=== PATIENT | female | born 1975 | race Caucasian/White ===

== ENCOUNTER 2018-10-19 15:45 | Inpatient (IN) | payer OTHER ==
[2018-10-19 16:31] VITALS: BMI 30.9
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
[2018-10-19] MEDS ORDERED: chlordiazePOXIDE HCL 25 MG CAPSULE PO ONE (19:35)
[2018-10-19] MEDS ORDERED: hydrOXYzine PAMOATE 25 MG CAPSULE (FP) PO PRN (19:35)
[2018-10-19] MEDS ORDERED: IBUPROFEN 600 MG TABLET (FP) PO PRN (19:35)
[2018-10-19] MEDS ORDERED: MAG HYDROX/AL HYDROX/SIMETH 30 ML UNIT-DOSE CUP PO PRN (19:35)
[2018-10-19] MEDS ORDERED: ACETAMINOPHEN 325 MG TABLET (FP) PO PRN ×2 (19:35)
[2018-10-19] MEDS ORDERED: chlordiazePOXIDE HCL 25 MG CAPSULE PO PRN (19:35)
[2018-10-19] MEDS ORDERED: MAGNESIUM HYDROX 2400MG/30ML ORAL SUSPENSION 30 ML CUP PO PRN (19:35)
[2018-10-19] MEDS ORDERED: METHOCARBAMOL 500 MG TABLET PO PRN (19:35)
[2018-10-19] MEDS ORDERED: MENTHOL/PHENOL 1 EACH UD MM PRN (19:35)
[2018-10-19] MEDS ORDERED: BISMUTH SUBSALICYLATE 524 MG/30 ML UD PO PRN (19:35)
[2018-10-19] MEDS ORDERED: MAGNESIUM CITRATE 300 ML BOTTLE PO PRN (19:35)
[2018-10-19] MEDS: MELATONIN 5 MG TABLETS PO PRN (22:21)
[2018-10-19] MEDS: chlordiazePOXIDE HCL 25 MG CAPSULE PO SCH (22:21)
[2018-10-19] MEDS: THIAMINE HCL 100 MG TABLET (FP) PO SCH (22:22)
[2018-10-19] MEDS: levETIRAcetam 500 MG TABLET (FP) PO SCH (23:05)
[2018-10-19] MEDS: BACITRACIN 0.9 GM PACKET TP SCH (23:05)
[2018-10-19] MEDS: GABAPENTIN 300 MG CAPSULE (FP) PO SCH (23:05)
[2018-10-20] MEDS: GABAPENTIN 300 MG CAPSULE (FP) PO SCH ×3 (05:35→22:08)
[2018-10-20] MEDS: chlordiazePOXIDE HCL 25 MG CAPSULE PO SCH ×3 (05:36→17:40)
[2018-10-20] MEDS ORDERED: PSEUDOEPHEDRINE PO SCH (10:00)
[2018-10-20] MEDS ORDERED: [UNRECOGNIZED DRUG - OTHER] PO SCH (10:00)
[2018-10-20] MEDS ORDERED: CETIRIZINE HCL PO SCH (10:00)
[2018-10-20] MEDS: BACITRACIN 0.9 GM PACKET TP SCH ×2 (10:05→22:08)
[2018-10-20] MEDS: levETIRAcetam 500 MG TABLET (FP) PO SCH ×2 (10:06→22:07)
--- NOTE | 2018-10-20 10:06 | EKG ---
Test Reason : Blood Pressure : / mmHG Vent. Rate : 063 BPM Atrial Rate : 063 BPM P-R Int : 138 ms QRS Dur : 082 ms QT Int : 406 ms P-R-T Axes : 038 062 036 degrees QTc Int : 415 ms NORMAL SINUS RHYTHM NORMAL ECG NO PREVIOUS ECGS AVAILABLE Confirmed by EVA MARTIN, MOISÉS ([id number]) on 10/20/2018 10:05:51 AM Referred By: NELSON MENEZES Confirmed By:MOISÉS VELASQUEZ MD
[2018-10-20] MEDS: NICOTINE 21 MG/24 HOURS TOPICAL PATCH TD SCH (10:07)
[2018-10-20] MEDS: NICOTINE POLACRILEX 2 MG GUM BUC PRN ×2 (10:07→22:12)
[2018-10-20] MEDS: ALBUTEROL SO4 8 GM HFA INHALER IH SCH (10:08)
[2018-10-20 10:25] LABS: HEMATOCRIT 37.1 % (32.4-45.2); HEMOGLOBIN 12.4 GM/dL (10.7-15.3); MCHC 33.5 g/dl (32.0-36.0); MEAN CELL VOLUME 101.6 fl (80-96); MEAN PLT VOLUME 9.8 fl (7.5-11.1); PLATELET COUNT 76 K/MM3 (134-434); RBC 3.65 M/mm3 (3.60-5.2); WHITE BLOOD COUNT 5.2 K/mm3 (4.0-10.0)
[2018-10-20 10:37] LABS: ALK PHOS 83 U/L (45-117); ANION GAP 5 MMOL/L (8-16); BILIRUBIN,TOTAL 0.5 mg/dL (0.2-1); BLOOD UREA NITROGEN 12 mg/dL (7-18); CALCIUM 8.8 mg/dL (8.5-10.1); CHLORIDE 105 mmol/L (98-107); CO2 30 mmol/L (21-32); CREATININE 0.8 mg/dL (0.55-1.3); GLUCOSE,RANDOM 172 mg/dL (74-106); POTASSIUM 3.6 mmol/L (3.5-5.1); SGOT/AST 78 U/L (15-37); SGPT/ALT 75 U/L (13-61); SODIUM 139 mmol/L (136-145); TOT PROT 5.8 g/dl (6.4-8.2)
[2018-10-20] MEDS: PATIENT'S OWN MEDICATION (NON-FORMULARY) (Topiramate [Topamax] 50 MG) PO SCH (11:45)
[2018-10-20] MEDS ORDERED: P-EPHED 60MG/TRIPROLIDI 2.5MG TABLET PO PRN (13:33)
--- NOTE | 2018-10-20 13:35 | PN ---
S CIWA - CIWA Score Nausea/Vomitin-No Nausea/No Vomiting Muscle Tremors: 3 Anxiety: 3 Agitation: 3 Paroxysmal Sweats: 3 Orientation: 0-Oriented Tacttile Disturbances: 0-None Auditory Disturbances: 0-None Visual Disturbances: 0-None Headache: 0-None Present CIWA-Ar Total Score: 12 S Progress Note (SOAP) Subjective: agitation sweats shakes interrupted sleep i need my own zertec ordered from my medication i brought in. Objective: 10/20/18 13:34 Vital Signs Temperature 98.1 F 10/20/18 09:31 Pulse Rate 72 10/20/18 09:31 Respiratory Rate 16 10/20/18 09:31 Blood Pressure 117/65 10/20/18 09:31 O2 Sat by Pulse Oximetry (%) Laboratory Tests 10/19/18 10/20/18 10/20/18 22:09 07:00 07:00 WBC 5.2 RBC 3.65 Hgb 12.4 Hct 37.1 MCV 101.6 H MCH 34.0 H MCHC 33.5 RDW 14.0 Plt Count 76 L MPV 9.8 Sodium 139 Potassium 3.6 Chloride 105 Carbon Dioxide 30 Anion Gap 5 L BUN 12 Creatinine 0.8 Creat Clearance w eGFR 77.57 Random Glucose 172 H Calcium 8.8 Total Bilirubin 0.5 AST 78 H ALT 75 H Alkaline Phosphatase 83 Total Protein 5.8 L Albumin 3.0 L POC Urine HCG, Qual Negative RPR Titer 10/20/18 07:00 WBC RBC Hgb Hct MCV MCH MCHC RDW Plt Count MPV Sodium Potassium Chloride Carbon Dioxide Anion Gap BUN Creatinine Creat Clearance w eGFR Random Glucose Calcium Total Bilirubin AST ALT Alkaline Phosphatase Total Protein Albumin POC Urine HCG, Qual RPR Titer Nonreactive aaox3 ambulating no acute distress Assessment: 10/20/18 13:34 withdrawal sx zertec medication was verified and seen bottle she brought in to have it ordered. Plan: continue detox increase fluids zertec 10mg ordered
[2018-10-20] MEDS ORDERED: IBUPROFEN 600 MG TABLET (FP) PO PRN (14:12)
[2018-10-20] MEDS ORDERED: CETIRIZINE 10 MG PO ONE (14:30)
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
[2018-10-20] MEDS: THIAMINE HCL 100 MG TABLET (FP) PO SCH (22:08)
[2018-10-20] MEDS: AMITRIPTYLINE HCL 10 MG TABLET (FP) PO SCH (22:09)
[2018-10-20] MEDS: MELATONIN 5 MG TABLETS PO PRN (22:10)
[2018-10-21] MEDS: GABAPENTIN 300 MG CAPSULE (FP) PO SCH ×3 (06:31→22:10)
[2018-10-21] MEDS: chlordiazePOXIDE HCL 25 MG CAPSULE PO SCH ×4 (06:33→18:07)
[2018-10-21] MEDS: IBUPROFEN 400 MG TABLET (FP) PO PRN ×2 (06:35→23:20)
[2018-10-21] MEDS: levETIRAcetam 500 MG TABLET (FP) PO SCH ×2 (10:06→22:10)
[2018-10-21] MEDS: PATIENT'S OWN MEDICATION (NON-FORMULARY) (Topiramate [Topamax] 50 MG) PO SCH (10:07)
[2018-10-21] MEDS: BACITRACIN 0.9 GM PACKET TP SCH ×2 (10:07→22:12)
[2018-10-21] MEDS: CETIRIZINE 10 MG PO SCH (10:07)
[2018-10-21] MEDS: ALBUTEROL SO4 8 GM HFA INHALER IH SCH (10:09)
[2018-10-21] MEDS: NICOTINE 21 MG/24 HOURS TOPICAL PATCH TD SCH (10:09)
[2018-10-21] MEDS: NICOTINE POLACRILEX 2 MG GUM BUC PRN (10:10)
--- NOTE | 2018-10-21 11:24 | PN ---
[facility] CIWA - CIWA Score Nausea/Vomitin-No Nausea/No Vomiting Muscle Tremors: 3 Anxiety: 3 Agitation: 3 Paroxysmal Sweats: 2 Orientation: 0-Oriented Tacttile Disturbances: 0-None Auditory Disturbances: 0-None Visual Disturbances: 0-None Headache: 0-None Present CIWA-Ar Total Score: 11 S Progress Note (SOAP) Subjective: sweats chills agitation interrupted sleep Objective: 10/21/18 11:23 Vital Signs Temperature 97.5 F L 10/21/18 09:10 Pulse Rate 81 10/21/18 09:10 Respiratory Rate 18 10/21/18 09:10 Blood Pressure 125/92 10/21/18 09:10 O2 Sat by Pulse Oximetry (%) Laboratory Tests 10/19/18 10/20/18 10/20/18 22:09 07:00 07:00 WBC 5.2 RBC 3.65 Hgb 12.4 Hct 37.1 MCV 101.6 H MCH 34.0 H MCHC 33.5 RDW 14.0 Plt Count 76 L MPV 9.8 Sodium 139 Potassium 3.6 Chloride 105 Carbon Dioxide 30 Anion Gap 5 L BUN 12 Creatinine 0.8 Creat Clearance w eGFR 77.57 Random Glucose 172 H Calcium 8.8 Total Bilirubin 0.5 AST 78 H ALT 75 H Alkaline Phosphatase 83 Total Protein 5.8 L Albumin 3.0 L POC Urine HCG, Qual Negative RPR Titer 10/20/18 07:00 WBC RBC Hgb Hct MCV MCH MCHC RDW Plt Count MPV Sodium Potassium Chloride Carbon Dioxide Anion Gap BUN Creatinine Creat Clearance w eGFR Random Glucose Calcium Total Bilirubin AST ALT Alkaline Phosphatase Total Protein Albumin POC Urine HCG, Qual RPR Titer Nonreactive aaox3 ambulating no acute distress Assessment: 10/21/18 11:24 withdrawal sx Plan: continue detox increase fluids
[2018-10-21] MEDS: AMITRIPTYLINE HCL 10 MG TABLET (FP) PO SCH (22:09)
[2018-10-21] MEDS: THIAMINE HCL 100 MG TABLET (FP) PO SCH (22:18)
[2018-10-21] MEDS ORDERED: chlordiazePOXIDE HCL 10 MG CAPSULE PO PRN (23:00)
[2018-10-21] MEDS: chlordiazePOXIDE HCL 10 MG CAPSULE PO SCH (23:51)
[2018-10-22] MEDS: GABAPENTIN 300 MG CAPSULE (FP) PO SCH ×3 (06:15→22:12)
[2018-10-22] MEDS: chlordiazePOXIDE HCL 10 MG CAPSULE PO SCH ×4 (06:15→22:11)
[2018-10-22] MEDS: NICOTINE 21 MG/24 HOURS TOPICAL PATCH TD SCH (10:18)
[2018-10-22] MEDS: BACITRACIN 0.9 GM PACKET TP SCH ×2 (10:18→22:11)
[2018-10-22] MEDS: levETIRAcetam 500 MG TABLET (FP) PO SCH ×2 (10:18→22:12)
[2018-10-22] MEDS: ALBUTEROL SO4 8 GM HFA INHALER IH SCH (10:19)
[2018-10-22] MEDS: PATIENT'S OWN MEDICATION (NON-FORMULARY) (Topiramate [Topamax] 50 MG) PO SCH (10:19)
--- NOTE | 2018-10-22 10:26 | PN ---
S CIWA - CIWA Score Nausea/Vomitin-No Nausea/No Vomiting Muscle Tremors: 1-None Visible, but [place] Anxiety: 1-Mildly Anxious Agitation: 2 Paroxysmal Sweats: 1-Minimal Palms Moist Orientation: 0-Oriented Tacttile Disturbances: 0-None Auditory Disturbances: 0-None Visual Disturbances: 0-None Headache: 0-None Present CIWA-Ar Total Score: 5 [facility] Progress Note (SOAP) Subjective: feeling much better little anxiety Objective: 10/22/18 10:25 Vital Signs Temperature 97.3 F L 10/22/18 10:02 Pulse Rate 98 H 10/22/18 10:02 Respiratory Rate 20 10/22/18 10:02 Blood Pressure 123/88 10/22/18 10:02 O2 Sat by Pulse Oximetry (%) aaox3 ambulating no acute distress Assessment: 10/22/18 10:26 mild withdrawal sx Plan: continue detox increase fluids d/c in am
[2018-10-22] MEDS: CETIRIZINE 10 MG PO SCH (12:00)
[2018-10-22] MEDS: NICOTINE POLACRILEX 2 MG GUM BUC PRN ×2 (17:32→22:14)
[2018-10-22] MEDS: IBUPROFEN 400 MG TABLET (FP) PO PRN (19:59)
[2018-10-22] MEDS: AMITRIPTYLINE HCL 10 MG TABLET (FP) PO SCH (22:12)
[2018-10-22] MEDS: THIAMINE HCL 100 MG TABLET (FP) PO SCH (22:12)
[2018-10-23] MEDS: GABAPENTIN 300 MG CAPSULE (FP) PO SCH (06:41)
[2018-10-23] MEDS: NICOTINE POLACRILEX 2 MG GUM BUC PRN (06:42)
--- NOTE | 2018-10-23 08:51 | DS ---
[facility] Detox Discharge Summary Admission Date: 10/19/18 Discharge Date: 10/23/18 - History Present History: Alcohol Dependence - Physical Exam Results Vital Signs: Vital Signs Temperature 97.9 F 10/22/18 21:58 Pulse Rate 72 10/22/18 21:58 Respiratory Rate 18 10/23/18 03:30 Blood Pressure 116/82 10/22/18 21:58 O2 Sat by Pulse Oximetry (%) - Treatment Hospital Course: Detox Protocol Followed, Detoxed Safely, Responded well, Discharged Condition Good, Rehab Referral Accepted - Medication Discharge Medications: Ambulatory Orders Albuterol Sulfate Inhaler - [Ventolin Hfa Inhaler -] 1 puff IH DAILY 10/19/18 Cetirizine HCl/Pseudoephedrine [Zyrtec-D Tablet] 1 each PO DAILY 10/19/18 Fluticasone Propionate [Flonase Allergy Relief] 9.9 ml NS DAILY 10/19/18 Gabapentin 600 mg PO TID 10/19/18 Naproxen [Naprosyn -] 500 mg PO BID 10/19/18 Topiramate [Topamax] 50 mg PO DAILY 10/19/18 levETIRAcetam [Keppra -] 500 mg PO BID 10/19/18 Amitriptyline HCl [Elavil -] 10 mg PO HS 10/20/18 - Diagnosis (1) Alcohol dependence with withdrawal Current Visit: Yes Status: Chronic Qualifiers: Complication of substance-induced condition: uncomplicated Qualified Code(s ): F10.230 - Alcohol dependence with withdrawal, uncomplicated (2) Alcohol-induced mood disorder Current Visit: Yes Status: Acute (3) Insomnia Current Visit: Yes Status: Acute (4) Alcohol dependence with uncomplicated intoxication Current Visit: Yes Status: Chronic (5) Asthma Current Visit: Yes Status: Chronic Qualifiers: Asthma severity: mild Asthma persistence: unspecified Asthma complication type: unspecified Qualified Code(s): J45.909 - Unspecified asthma , uncomplicated (6) Neuropathy Current Visit: Yes Status: Chronic (7) Nicotine dependence Current Visit: Yes Status: Chronic Qualifiers: Nicotine product type: cigarettes Substance use status: uncomplicated Qualified Code(s): F17.210 - Nicotine dependence, cigarettes, uncomplicated (8) Seizures Current Visit: Yes Status: Chronic - AMA Did Patient Leave Against Medical Advice: No (ref[facility])
[2018-10-23] MEDS ORDERED: LOPERAMIDE HCL 2 MG CAPSULE PO ONE (09:12)
[2018-10-23 09:24] VITALS: BP 102/69; PULSE 88; TEMP 97.7
[2018-10-23] MEDS: levETIRAcetam 500 MG TABLET (FP) PO SCH (10:19)
[2018-10-23] MEDS: chlordiazePOXIDE HCL 10 MG CAPSULE PO SCH (10:19)
[2018-10-23] MEDS: NICOTINE 21 MG/24 HOURS TOPICAL PATCH TD SCH (10:19)
[2018-10-23] MEDS: BACITRACIN 0.9 GM PACKET TP SCH (10:19)
[2018-10-23] MEDS: ALBUTEROL SO4 8 GM HFA INHALER IH SCH (10:19)
[2018-10-23] MEDS: CETIRIZINE 10 MG PO SCH (10:19)
[2018-10-23] MEDS: PATIENT'S OWN MEDICATION (NON-FORMULARY) (Topiramate [Topamax] 50 MG) PO SCH (10:19)
== END 2018-10-23 11:35 | disposition other institution (70) | DRG 775 ==
LOC: YASAS 15:45 → Y6N 19:28
PROVIDERS: ADMIT Surgery; ATTEND Surgery
PROC: HZ2ZZZZ Detoxification Services for Substance Abuse Treatment (ICD-10-PCS; principal; 2018-10-19)
DX: F10.230 Alcohol dependence with withdrawal, uncomplicated (principal); F10.229 Alcohol dependence with intoxication, unspecified; F17.210 Nicotine dependence, cigarettes, uncomplicated; F10.24 Alcohol dependence with alcohol-induced mood disorder; R56.1 Post traumatic seizures; J45.909 Unspecified asthma, uncomplicated; G62.9 Polyneuropathy, unspecified; G47.00 Insomnia, unspecified
CPT/HCPCS: 36415; 80053; 81025; 85027; 86593; 93005; 93010

== ENCOUNTER 2018-10-23 12:00 | Inpatient (IN) | payer OTHER ==
[2018-10-23] MEDS ORDERED: IBUPROFEN 400 MG TABLET (FP) PO PRN (13:42)
[2018-10-23] MEDS ORDERED: guaiFENesin 200 MG/10 ML 10 ML UNIT-DOSE CUPS PO PRN (13:42)
[2018-10-23] MEDS ORDERED: MENTHOL/PHENOL 1 EACH UD MM PRN (13:42)
[2018-10-23] MEDS ORDERED: MAGNESIUM CITRATE 300 ML BOTTLE PO PRN (13:42)
[2018-10-23] MEDS ORDERED: MAGNESIUM HYDROX 2400MG/30ML ORAL SUSPENSION 30 ML CUP PO PRN (13:42)
[2018-10-23] MEDS ORDERED: P-EPHED 60MG/TRIPROLIDI 2.5MG TABLET PO PRN (13:42)
--- NOTE | 2018-10-23 13:42 | HP ---
MARISOL MARTIN Rehab Assess/Revision - Admission History Admitted to Rehab from: Y [address] [place] [address] - Vital signs Vital Signs: Vital Signs Period Temp Pulse Resp BP Sys/Shi Pulse Ox Last 24 Hr 96.6 F 73 18 119/80 - Findings Detox History & Physical reviewed: Yes Concur with findings: Yes Inpatient Rehab Admission - Rehab Decision to Admit Inpatient rehab admission?: Yes - Initial Determination Are CD services needed?: Yes Free of communicable disease: Yes Not in need of hospitalization: Yes - Rehab Admission Criteria Previous failed treatment: Yes Poor recovery environment: Yes Comorbidities: Yes Lacks judgement: Yes Patient is meeting Inpatient Rehab admission criteria:: Yes
[2018-10-23] MEDS ORDERED: ALBUTEROL SO4 8 GM HFA INHALER IH PRN (13:43)
[2018-10-23] MEDS ORDERED: PT OWN MED DRAWER 7, Y5N ONE ×2 (15:19→19:55)
[2018-10-23] MEDS: GABAPENTIN 300 MG CAPSULE (FP) PO SCH ×2 (15:23→21:27)
[2018-10-23] MEDS: LOPERAMIDE HCL 2 MG CAPSULE PO PRN ×2 (15:23→21:26)
[2018-10-23] MEDS: MAG HYDROX/AL HYDROX/SIMETH 30 ML UNIT-DOSE CUP PO PRN (19:18)
[2018-10-23] MEDS: THIAMINE HCL 100 MG TABLET (FP) PO SCH (21:25)
[2018-10-23] MEDS: BACITRACIN 0.9 GM PACKET TP SCH (21:27)
[2018-10-23] MEDS: levETIRAcetam 500 MG TABLET (FP) PO SCH (21:27)
[2018-10-23] MEDS: NAPROXEN 500 MG TABLET (FP) PO SCH (21:27)
[2018-10-23] MEDS: AMITRIPTYLINE HCL 10 MG TABLET (FP) PO SCH (21:28)
[2018-10-23] MEDS: FLUTICASONE PROP 0.05% 16 GM NASAL SPRAY NS SCH (21:28)
[2018-10-23] MEDS ORDERED: MELATONIN 5 MG TABLETS PO PRN (22:00)
[2018-10-24] MEDS: BISMUTH SUBSALICYLATE 524 MG/30 ML UD PO PRN ×2 (02:14→06:43)
[2018-10-24] MEDS: GABAPENTIN 300 MG CAPSULE (FP) PO SCH ×3 (06:42→21:12)
[2018-10-24] MEDS: NAPROXEN 500 MG TABLET (FP) PO SCH ×2 (09:58→21:12)
[2018-10-24] MEDS: FLUTICASONE PROP 0.05% 16 GM NASAL SPRAY NS SCH ×2 (09:58→21:15)
[2018-10-24] MEDS: BACITRACIN 0.9 GM PACKET TP SCH ×2 (09:58→21:12)
[2018-10-24] MEDS: CETIRIZINE 10 MG PO SCH (09:58)
[2018-10-24] MEDS: levETIRAcetam 500 MG TABLET (FP) PO SCH ×2 (09:59→21:12)
[2018-10-24] MEDS: TOPIRAMATE 25 MG TABLET (FP) PO SCH (09:59)
[2018-10-24] MEDS: NICOTINE 21 MG/24 HOURS TOPICAL PATCH TD SCH (09:59)
[2018-10-24] MEDS ORDERED: PSEUDOEPHEDRINE PO SCH (10:00)
[2018-10-24] MEDS ORDERED: CETIRIZINE HCL PO SCH (10:00)
[2018-10-24] MEDS ORDERED: [UNRECOGNIZED DRUG - OTHER] PO SCH (10:00)
[2018-10-24] MEDS: MULTIVITAMINS (DAILY MVI) TABLET (FP) PO SCH (13:07)
[2018-10-24] MEDS: NICOTINE POLACRILEX 4 MG GUM BUC PRN ×2 (13:07→18:37)
[2018-10-24] MEDS ORDERED: WITCH HAZEL 50% (TUCKS) 40 PAD/JAR PAD TP PRN (13:44)
--- NOTE | 2018-10-24 13:50 | PN ---
[facility] Progress Note Note: PT C/O FREQUENT WATERY STOOL WITH RECTAL DISCOMFORT SINCE YESTERDAY. PT WAS ORDERED PEPTO-BISMOL EARLIER THIS MORNING. PT IS A NEW PT REFERRED TO [facility] ON 10/23/18 WHO COMPLETED DETOX FROM 10/19/18 TO 10/23/18 ON [address] [facility]. Vital Signs 10/24/18 06:52 Temperature 97.4 F L Pulse Rate 105 H Respiratory 18 Rate Blood Pressure 123/86 DIARRHEA PLAN;CONTINUE PEPTO D/W PT TO AVOID DAIRY FOODS AND ORANGE JUICE TILL SYMPTOMS KRYSTYNA. HYDRATION TOLERATED MAY TAKE WARM TEAS WITH NO MILK. TUCKS WIPES AFTER EACH BM
[2018-10-24] MEDS ORDERED: PT OWN MED DRAWER 7, Y5N ONE ×2 (14:41→21:41)
[2018-10-24] MEDS: THIAMINE HCL 100 MG TABLET (FP) PO SCH (21:15)
[2018-10-24] MEDS: AMITRIPTYLINE HCL 10 MG TABLET (FP) PO SCH (21:42)
[2018-10-25] MEDS: GABAPENTIN 300 MG CAPSULE (FP) PO SCH ×3 (06:41→21:11)
[2018-10-25] MEDS ORDERED: PT OWN MED DRAWER 7, Y5N ONE ×2 (07:18→21:12)
[2018-10-25] MEDS: BISMUTH SUBSALICYLATE 524 MG/30 ML UD PO PRN ×2 (07:40→13:03)
[2018-10-25] MEDS: BACITRACIN 0.9 GM PACKET TP SCH ×2 (10:08→21:10)
[2018-10-25] MEDS: NAPROXEN 500 MG TABLET (FP) PO SCH ×2 (10:08→21:11)
[2018-10-25] MEDS: levETIRAcetam 500 MG TABLET (FP) PO SCH ×2 (10:08→21:11)
[2018-10-25] MEDS: TOPIRAMATE 25 MG TABLET (FP) PO SCH (10:09)
[2018-10-25] MEDS: NICOTINE 21 MG/24 HOURS TOPICAL PATCH TD SCH (10:09)
[2018-10-25] MEDS: FLUTICASONE PROP 0.05% 16 GM NASAL SPRAY NS SCH ×2 (10:10→21:12)
[2018-10-25] MEDS: MULTIVITAMINS (DAILY MVI) TABLET (FP) PO SCH (10:11)
[2018-10-25] MEDS: CETIRIZINE 10 MG PO SCH (10:11)
[2018-10-25] MEDS: NICOTINE POLACRILEX 4 MG GUM BUC PRN ×3 (10:13→21:14)
[2018-10-25] MEDS: MAG HYDROX/AL HYDROX/SIMETH 30 ML UNIT-DOSE CUP PO PRN (10:13)
[2018-10-25] MEDS: ACETAMINOPHEN 325 MG TABLET (FP) PO PRN (17:58)
[2018-10-25] MEDS: THIAMINE HCL 100 MG TABLET (FP) PO SCH (21:11)
[2018-10-25] MEDS: AMITRIPTYLINE HCL 10 MG TABLET (FP) PO SCH (21:13)
[2018-10-26] MEDS: GABAPENTIN 300 MG CAPSULE (FP) PO SCH ×3 (07:07→21:09)
[2018-10-26] MEDS: BISMUTH SUBSALICYLATE 524 MG/30 ML UD PO PRN ×3 (07:07→19:15)
[2018-10-26] MEDS: BACITRACIN 0.9 GM PACKET TP SCH ×2 (09:53→21:09)
[2018-10-26] MEDS: CETIRIZINE 10 MG PO SCH (09:53)
[2018-10-26] MEDS: NICOTINE 21 MG/24 HOURS TOPICAL PATCH TD SCH (09:53)
[2018-10-26] MEDS: levETIRAcetam 500 MG TABLET (FP) PO SCH ×2 (09:54→21:10)
[2018-10-26] MEDS: MULTIVITAMINS (DAILY MVI) TABLET (FP) PO SCH (09:54)
[2018-10-26] MEDS: NAPROXEN 500 MG TABLET (FP) PO SCH ×2 (09:54→21:12)
[2018-10-26] MEDS: NICOTINE POLACRILEX 4 MG GUM BUC PRN (09:55)
[2018-10-26] MEDS: FLUTICASONE PROP 0.05% 16 GM NASAL SPRAY NS SCH ×2 (09:55→21:12)
[2018-10-26] MEDS: TOPIRAMATE 25 MG TABLET (FP) PO SCH (09:55)
[2018-10-26] MEDS: THIAMINE HCL 100 MG TABLET (FP) PO SCH (21:09)
[2018-10-26] MEDS ORDERED: PT OWN MED DRAWER 7, Y5N ONE ×2 (21:11→22:21)
[2018-10-26] MEDS: AMITRIPTYLINE HCL 10 MG TABLET (FP) PO SCH (21:12)
[2018-10-27] MEDS: GABAPENTIN 300 MG CAPSULE (FP) PO SCH ×3 (06:42→21:49)
[2018-10-27] MEDS: NICOTINE POLACRILEX 4 MG GUM BUC PRN ×3 (06:43→21:51)
[2018-10-27] MEDS: CETIRIZINE 10 MG PO SCH (09:45)
[2018-10-27] MEDS: BACITRACIN 0.9 GM PACKET TP SCH ×2 (09:45→21:49)
[2018-10-27] MEDS: FLUTICASONE PROP 0.05% 16 GM NASAL SPRAY NS SCH ×2 (09:46→21:50)
[2018-10-27] MEDS ORDERED: PT OWN MED DRAWER 7, Y5N ONE ×3 (09:47→22:58)
[2018-10-27] MEDS: NICOTINE 21 MG/24 HOURS TOPICAL PATCH TD SCH (09:48)
[2018-10-27] MEDS: NAPROXEN 500 MG TABLET (FP) PO SCH ×2 (09:48→21:49)
[2018-10-27] MEDS: levETIRAcetam 500 MG TABLET (FP) PO SCH ×2 (09:48→21:49)
[2018-10-27] MEDS: MULTIVITAMINS (DAILY MVI) TABLET (FP) PO SCH (09:49)
[2018-10-27] MEDS: TOPIRAMATE 25 MG TABLET (FP) PO SCH (09:49)
[2018-10-27] MEDS ORDERED: DIPHENOXYLATE 2.5/ATROPINE.025 1 COMBO TABLET PO ONE (09:55)
[2018-10-27] MEDS: DIPHENOXYLATE 2.5/ATROPINE.025 1 COMBO TABLET PO PRN (19:06)
[2018-10-27] MEDS: THIAMINE HCL 100 MG TABLET (FP) PO SCH (21:49)
[2018-10-27] MEDS: AMITRIPTYLINE HCL 10 MG TABLET (FP) PO SCH (21:49)
[2018-10-28] MEDS: GABAPENTIN 300 MG CAPSULE (FP) PO SCH ×3 (06:27→21:52)
[2018-10-28] MEDS: NICOTINE POLACRILEX 4 MG GUM BUC PRN ×3 (06:30→21:59)
[2018-10-28] MEDS: CETIRIZINE 10 MG PO SCH (09:48)
[2018-10-28] MEDS: BACITRACIN 0.9 GM PACKET TP SCH ×2 (09:48→21:54)
[2018-10-28] MEDS: levETIRAcetam 500 MG TABLET (FP) PO SCH ×2 (09:48→21:53)
[2018-10-28] MEDS: NAPROXEN 500 MG TABLET (FP) PO SCH ×2 (09:48→21:53)
[2018-10-28] MEDS: TOPIRAMATE 25 MG TABLET (FP) PO SCH (09:48)
[2018-10-28] MEDS: NICOTINE 21 MG/24 HOURS TOPICAL PATCH TD SCH (09:53)
[2018-10-28] MEDS: FLUTICASONE PROP 0.05% 16 GM NASAL SPRAY NS SCH ×2 (09:53→21:58)
[2018-10-28] MEDS: DIPHENOXYLATE 2.5/ATROPINE.025 1 COMBO TABLET PO PRN (10:17)
[2018-10-28] MEDS: MULTIVITAMINS (DAILY MVI) TABLET (FP) PO SCH (10:41)
[2018-10-28] MEDS ORDERED: LOPERAMIDE HCL 2 MG CAPSULE PO PRN (14:38)
[2018-10-28] MEDS: LOPERAMIDE HCL 2 MG CAPSULE PO SCH ×2 (14:50→21:52)
[2018-10-28] MEDS: ACETAMINOPHEN 325 MG TABLET (FP) PO PRN (16:23)
[2018-10-28] MEDS ORDERED: PT OWN MED DRAWER 7, Y5N ONE ×2 (21:56→21:58)
[2018-10-28] MEDS: AMITRIPTYLINE HCL 10 MG TABLET (FP) PO SCH (22:31)
[2018-10-28] MEDS: THIAMINE HCL 100 MG TABLET (FP) PO SCH (23:06)
[2018-10-29] MEDS: LOPERAMIDE HCL 2 MG CAPSULE PO SCH ×4 (02:45→22:14)
[2018-10-29] MEDS: NICOTINE POLACRILEX 4 MG GUM BUC PRN ×4 (06:39→21:25)
[2018-10-29] MEDS: GABAPENTIN 300 MG CAPSULE (FP) PO SCH ×3 (06:39→21:21)
[2018-10-29] MEDS: CETIRIZINE 10 MG PO SCH (10:02)
[2018-10-29] MEDS: MULTIVITAMINS (DAILY MVI) TABLET (FP) PO SCH (10:02)
[2018-10-29] MEDS: FLUTICASONE PROP 0.05% 16 GM NASAL SPRAY NS SCH ×2 (10:02→21:19)
[2018-10-29] MEDS: BACITRACIN 0.9 GM PACKET TP SCH ×2 (10:03→21:19)
[2018-10-29] MEDS: levETIRAcetam 500 MG TABLET (FP) PO SCH ×2 (10:03→21:20)
[2018-10-29] MEDS: NAPROXEN 500 MG TABLET (FP) PO SCH ×2 (10:03→21:20)
[2018-10-29] MEDS: TOPIRAMATE 25 MG TABLET (FP) PO SCH (10:03)
[2018-10-29] MEDS: NICOTINE 21 MG/24 HOURS TOPICAL PATCH TD SCH (10:03)
[2018-10-29] MEDS: THIAMINE HCL 100 MG TABLET (FP) PO SCH (21:22)
[2018-10-29] MEDS: AMITRIPTYLINE HCL 10 MG TABLET (FP) PO SCH (22:12)
[2018-10-30] MEDS: LOPERAMIDE HCL 2 MG CAPSULE PO SCH ×2 (02:58→08:47)
[2018-10-30] MEDS: NICOTINE POLACRILEX 4 MG GUM BUC PRN ×3 (06:18→18:11)
[2018-10-30] MEDS: GABAPENTIN 300 MG CAPSULE (FP) PO SCH ×3 (06:18→21:34)
[2018-10-30] MEDS: BACITRACIN 0.9 GM PACKET TP SCH ×2 (09:41→21:34)
[2018-10-30] MEDS: FLUTICASONE PROP 0.05% 16 GM NASAL SPRAY NS SCH ×2 (09:42→21:35)
[2018-10-30] MEDS: CETIRIZINE 10 MG PO SCH (09:42)
[2018-10-30] MEDS: NAPROXEN 500 MG TABLET (FP) PO SCH ×2 (09:42→21:34)
[2018-10-30] MEDS: levETIRAcetam 500 MG TABLET (FP) PO SCH ×2 (09:42→21:34)
[2018-10-30] MEDS: SULFAMETHOXAZOLE/TRIMETHOPRIM 800MG/160MG D.S. TABLET PO SCH (09:42)
[2018-10-30] MEDS: TOPIRAMATE 25 MG TABLET (FP) PO SCH (09:43)
[2018-10-30] MEDS: NICOTINE 21 MG/24 HOURS TOPICAL PATCH TD SCH (09:43)
[2018-10-30] MEDS: MULTIVITAMINS (DAILY MVI) TABLET (FP) PO SCH (09:45)
[2018-10-30] MEDS ORDERED: PT OWN MED DRAWER 7, Y5N ONE ×2 (09:45→21:36)
[2018-10-30] MEDS ORDERED: LOPERAMIDE HCL 2 MG CAPSULE PO PRN (10:11)
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
--- NOTE | 2018-10-30 16:03 | PN ---
[facility] Progress Note Note: Topamax order changed to reflect how the patient is taking the medication at home.
[2018-10-30] MEDS: THIAMINE HCL 100 MG TABLET (FP) PO SCH (21:34)
[2018-10-30] MEDS: AMITRIPTYLINE HCL 10 MG TABLET (FP) PO SCH (21:35)
[2018-10-31] MEDS: NICOTINE POLACRILEX 4 MG GUM BUC PRN ×3 (06:11→18:10)
[2018-10-31] MEDS: GABAPENTIN 300 MG CAPSULE (FP) PO SCH ×3 (06:11→21:56)
[2018-10-31] MEDS ORDERED: PT OWN MED DRAWER 7, Y5N ONE ×2 (08:54→19:57)
[2018-10-31] MEDS: FLUTICASONE PROP 0.05% 16 GM NASAL SPRAY NS SCH ×2 (09:38→21:57)
[2018-10-31] MEDS: TOPIRAMATE 25 MG TABLET (FP) PO SCH ×2 (09:38→22:00)
[2018-10-31] MEDS: SULFAMETHOXAZOLE/TRIMETHOPRIM 800MG/160MG D.S. TABLET PO SCH (09:39)
[2018-10-31] MEDS: NAPROXEN 500 MG TABLET (FP) PO SCH ×2 (09:39→21:57)
[2018-10-31] MEDS: levETIRAcetam 500 MG TABLET (FP) PO SCH ×2 (09:39→21:56)
[2018-10-31] MEDS: MULTIVITAMINS (DAILY MVI) TABLET (FP) PO SCH (09:39)
[2018-10-31] MEDS: BACITRACIN 0.9 GM PACKET TP SCH ×2 (09:41→21:56)
[2018-10-31] MEDS: CETIRIZINE 10 MG PO SCH (09:41)
[2018-10-31] MEDS: NICOTINE 21 MG/24 HOURS TOPICAL PATCH TD SCH (09:41)
[2018-10-31] MEDS: MINERAL OIL/PETROLAT/WATER TOPICAL CREAM 113 GM JAR TP PRN (09:48)
[2018-10-31] MEDS ORDERED: HYDROCHLOROTHIAZIDE 25 MG TABLET (FP) PO SCH (10:15)
--- NOTE | 2018-10-31 10:17 | PN ---
[facility] Progress Note Note: Patient presents with swelling of bilateral feet. States she swelling has gotten worse since yesterday. Patient denies recent injury to feet, has hx of ETOH dependence and borderline DM. Patient states she feels burning sensation to bottom of feet due to swelling. Laboratory Tests 10/25/18 10/26/18 10/27/18 06:40 07:06 06:41 POC Glucometer 108 139 171 Hemoglobin A1c % 10/28/18 08:00 POC Glucometer Hemoglobin A1c % 6.1 PE: alert and oriented x 3 skin warm and dry +perrla eoms intact bl\ LLE with 2+ swelling, RLE with +1 swelling, +pedal pulses bilaterally full rom, amb ad lois, no calf redness or swelling A/P: edema Continue treatment previously started with Bactrim leg elevation prn start hctz 25mg qd x 3 days repeat cmp on 11/03/18 monitor clinically
[2018-10-31] MEDS: HYDROCHLOROTHIAZIDE 12.5 MG CAPSULE (FP) PO SCH (18:10)
[2018-10-31] MEDS: ACETAMINOPHEN 325 MG TABLET (FP) PO PRN (19:09)
[2018-10-31] MEDS: AMITRIPTYLINE HCL 10 MG TABLET (FP) PO SCH (21:56)
[2018-10-31] MEDS: THIAMINE HCL 100 MG TABLET (FP) PO SCH (23:42)
[2018-11-01] MEDS: GABAPENTIN 300 MG CAPSULE (FP) PO SCH ×3 (06:17→21:07)
[2018-11-01] MEDS: NICOTINE POLACRILEX 4 MG GUM BUC PRN ×2 (06:18→09:43)
[2018-11-01] MEDS: BACITRACIN 0.9 GM PACKET TP SCH ×2 (09:40→21:10)
[2018-11-01] MEDS: HYDROCHLOROTHIAZIDE 12.5 MG CAPSULE (FP) PO SCH ×2 (09:41→18:35)
[2018-11-01] MEDS: CETIRIZINE 10 MG PO SCH (09:41)
[2018-11-01] MEDS: SULFAMETHOXAZOLE/TRIMETHOPRIM 800MG/160MG D.S. TABLET PO SCH (09:41)
[2018-11-01] MEDS: NAPROXEN 500 MG TABLET (FP) PO SCH ×2 (09:42→21:07)
[2018-11-01] MEDS: TOPIRAMATE 25 MG TABLET (FP) PO SCH ×2 (09:42→21:07)
[2018-11-01] MEDS: MULTIVITAMINS (DAILY MVI) TABLET (FP) PO SCH (09:42)
[2018-11-01] MEDS: levETIRAcetam 500 MG TABLET (FP) PO SCH ×2 (09:42→21:08)
[2018-11-01] MEDS: FLUTICASONE PROP 0.05% 16 GM NASAL SPRAY NS SCH ×2 (09:43→21:10)
[2018-11-01] MEDS: NICOTINE 21 MG/24 HOURS TOPICAL PATCH TD SCH (09:43)
[2018-11-01] MEDS ORDERED: PT OWN MED DRAWER 7, Y5N ONE ×3 (10:16→20:09)
[2018-11-01] MEDS: hydrOXYzine PAMOATE 50 MG CAPSULE (FP) PO PRN (10:42)
[2018-11-01] MEDS: AMITRIPTYLINE HCL 10 MG TABLET (FP) PO SCH (21:07)
[2018-11-01] MEDS: THIAMINE HCL 100 MG TABLET (FP) PO SCH (21:08)
[2018-11-02] MEDS: GABAPENTIN 300 MG CAPSULE (FP) PO SCH ×3 (06:38→21:07)
[2018-11-02] MEDS: NICOTINE POLACRILEX 4 MG GUM BUC PRN ×4 (06:39→21:10)
[2018-11-02] MEDS: TOPIRAMATE 25 MG TABLET (FP) PO SCH ×2 (09:42→21:08)
[2018-11-02] MEDS: levETIRAcetam 500 MG TABLET (FP) PO SCH ×2 (09:42→21:08)
[2018-11-02] MEDS: HYDROCHLOROTHIAZIDE 12.5 MG CAPSULE (FP) PO SCH ×2 (09:42→16:35)
[2018-11-02] MEDS: MULTIVITAMINS (DAILY MVI) TABLET (FP) PO SCH (09:42)
[2018-11-02] MEDS: SULFAMETHOXAZOLE/TRIMETHOPRIM 800MG/160MG D.S. TABLET PO SCH (09:42)
[2018-11-02] MEDS: NAPROXEN 500 MG TABLET (FP) PO SCH ×2 (09:42→21:08)
[2018-11-02] MEDS: BACITRACIN 0.9 GM PACKET TP SCH ×2 (09:43→21:07)
[2018-11-02] MEDS: CETIRIZINE 10 MG PO SCH (09:43)
[2018-11-02] MEDS: NICOTINE 21 MG/24 HOURS TOPICAL PATCH TD SCH (09:43)
[2018-11-02] MEDS: FLUTICASONE PROP 0.05% 16 GM NASAL SPRAY NS SCH ×2 (09:43→21:10)
[2018-11-02] MEDS: ACETAMINOPHEN 325 MG TABLET (FP) PO PRN (13:33)
[2018-11-02] MEDS: THIAMINE HCL 100 MG TABLET (FP) PO SCH (21:08)
[2018-11-02] MEDS: hydrOXYzine PAMOATE 50 MG CAPSULE (FP) PO PRN (21:08)
[2018-11-02] MEDS: AMITRIPTYLINE HCL 10 MG TABLET (FP) PO SCH (21:08)
[2018-11-03] MEDS: NICOTINE POLACRILEX 4 MG GUM BUC PRN ×2 (06:50→09:51)
[2018-11-03] MEDS: GABAPENTIN 300 MG CAPSULE (FP) PO SCH ×3 (06:50→21:01)
[2018-11-03] MEDS: MULTIVITAMINS (DAILY MVI) TABLET (FP) PO SCH (09:48)
[2018-11-03] MEDS: CETIRIZINE 10 MG PO SCH (09:48)
[2018-11-03] MEDS: NICOTINE 21 MG/24 HOURS TOPICAL PATCH TD SCH (09:49)
[2018-11-03] MEDS: TOPIRAMATE 25 MG TABLET (FP) PO SCH ×2 (09:49→21:02)
[2018-11-03] MEDS: levETIRAcetam 500 MG TABLET (FP) PO SCH ×2 (09:49→21:01)
[2018-11-03] MEDS: SULFAMETHOXAZOLE/TRIMETHOPRIM 800MG/160MG D.S. TABLET PO SCH (09:49)
[2018-11-03] MEDS: NAPROXEN 500 MG TABLET (FP) PO SCH ×2 (09:49→21:01)
[2018-11-03] MEDS: BACITRACIN 0.9 GM PACKET TP SCH ×2 (09:50→21:01)
[2018-11-03] MEDS: FLUTICASONE PROP 0.05% 16 GM NASAL SPRAY NS SCH ×2 (09:50→21:03)
[2018-11-03 10:02] LABS: ALBUMIN 3.6 g/dl (3.4-5.0); BILIRUBIN,TOTAL 0.4 mg/dL (0.2-1); CALCIUM 8.9 mg/dL (8.5-10.1); CREATININE 1.3 mg/dL (0.55-1.3); POTASSIUM 5.1 mmol/L (3.5-5.1); TOT PROT 6.8 g/dl (6.4-8.2)
[2018-11-03] MEDS: HYDROCHLOROTHIAZIDE 12.5 MG CAPSULE (FP) PO SCH ×2 (10:52→18:45)
--- NOTE | 2018-11-03 12:36 | PN ---
[facility] Progress Note Note: PATIENT SEEN FOR FOLLOW UP EDEMA, BLE CELLULITIS. PATIENT STATES SHE FEELS BETTER AND DENIES PAIN TO LEGS/FEET TODAY. Laboratory Tests 10/25/18 10/26/18 10/27/18 06:40 07:06 06:41 Sodium Potassium Chloride Carbon Dioxide Anion Gap BUN Creatinine Est GFR (CKD-EPI)AfAm Est GFR (CKD-EPI)NonAf POC Glucometer 108 139 171 Random Glucose Hemoglobin A1c % Calcium Total Bilirubin AST ALT Alkaline Phosphatase Total Protein Albumin Levetiracetam 10/28/18 10/31/18 11/03/18 08:00 08:50 07:00 Sodium 137 Potassium 5.1 Chloride 105 Carbon Dioxide 27 Anion Gap 5 L BUN 21 H Creatinine 1.3 Est GFR (CKD-EPI)AfAm 57.38 Est GFR (CKD-EPI)NonAf 49.50 POC Glucometer Random Glucose 125 H Hemoglobin A1c % 6.1 Calcium 8.9 Total Bilirubin 0.4 AST 18 ALT 28 Alkaline Phosphatase 75 Total Protein 6.8 Albumin 3.6 Levetiracetam 13.7 Vital Signs Temperature 97.8 F 11/03/18 06:45 Pulse Rate 63 11/03/18 10:50 Respiratory Rate 16 11/03/18 06:45 Blood Pressure 108/75 11/03/18 10:50 O2 Sat by Pulse Oximetry (%) PE: ALERT AND ORIENTED X 3 SKIN WARM AND DRY +PERRLA, EOMS INTACT BL BLE WITH TRACE EDEMA, +PEDAL PULSES B/L, MILD REDNESS AMB AD NITO A/P: IMPROVED EDEMA, CELLULITIS CONTINUE BACTRIM ORDERED LEG ELEVATION PRN MONITOR CLINICALLY
[2018-11-03] MEDS: ACETAMINOPHEN 325 MG TABLET (FP) PO PRN (16:39)
[2018-11-03] MEDS ORDERED: PT OWN MED DRAWER 7, Y5N ONE (20:05)
[2018-11-03] MEDS: THIAMINE HCL 100 MG TABLET (FP) PO SCH (21:02)
[2018-11-03] MEDS: AMITRIPTYLINE HCL 10 MG TABLET (FP) PO SCH (21:02)
[2018-11-04] MEDS: NICOTINE POLACRILEX 4 MG GUM BUC PRN (06:25)
[2018-11-04] MEDS: GABAPENTIN 300 MG CAPSULE (FP) PO SCH ×3 (06:25→22:05)
[2018-11-04] MEDS: ACETAMINOPHEN 325 MG TABLET (FP) PO PRN (08:49)
[2018-11-04] MEDS: SULFAMETHOXAZOLE/TRIMETHOPRIM 800MG/160MG D.S. TABLET PO SCH (09:13)
[2018-11-04] MEDS: BACITRACIN 0.9 GM PACKET TP SCH ×2 (09:13→22:04)
[2018-11-04] MEDS: CETIRIZINE 10 MG PO SCH (09:13)
[2018-11-04] MEDS: HYDROCHLOROTHIAZIDE 12.5 MG CAPSULE (FP) PO SCH ×2 (09:14→18:56)
[2018-11-04] MEDS: levETIRAcetam 500 MG TABLET (FP) PO SCH ×2 (09:14→22:05)
[2018-11-04] MEDS: FLUTICASONE PROP 0.05% 16 GM NASAL SPRAY NS SCH ×2 (09:14→22:06)
[2018-11-04] MEDS: NAPROXEN 500 MG TABLET (FP) PO SCH ×2 (09:14→22:04)
[2018-11-04] MEDS: TOPIRAMATE 25 MG TABLET (FP) PO SCH ×2 (09:15→22:05)
[2018-11-04] MEDS: MULTIVITAMINS (DAILY MVI) TABLET (FP) PO SCH (09:15)
[2018-11-04] MEDS: NICOTINE 21 MG/24 HOURS TOPICAL PATCH TD SCH (09:15)
[2018-11-04] MEDS: AMITRIPTYLINE HCL 10 MG TABLET (FP) PO SCH (22:04)
[2018-11-04] MEDS: THIAMINE HCL 100 MG TABLET (FP) PO SCH (22:04)
[2018-11-04] MEDS: hydrOXYzine PAMOATE 50 MG CAPSULE (FP) PO PRN (22:05)
[2018-11-04] MEDS ORDERED: PT OWN MED DRAWER 7, Y5N ONE ×2 (23:08→23:12)
[2018-11-05] MEDS: GABAPENTIN 300 MG CAPSULE (FP) PO SCH ×3 (06:15→21:58)
[2018-11-05] MEDS: NICOTINE POLACRILEX 4 MG GUM BUC PRN ×2 (06:15→14:16)
[2018-11-05] MEDS: levETIRAcetam 500 MG TABLET (FP) PO SCH ×2 (09:43→21:58)
[2018-11-05] MEDS: SULFAMETHOXAZOLE/TRIMETHOPRIM 800MG/160MG D.S. TABLET PO SCH (09:43)
[2018-11-05] MEDS: MULTIVITAMINS (DAILY MVI) TABLET (FP) PO SCH (09:43)
[2018-11-05] MEDS: BACITRACIN 0.9 GM PACKET TP SCH ×2 (09:43→21:58)
[2018-11-05] MEDS: NAPROXEN 500 MG TABLET (FP) PO SCH ×2 (09:44→21:58)
[2018-11-05] MEDS: CETIRIZINE 10 MG PO SCH (09:44)
[2018-11-05] MEDS: HYDROCHLOROTHIAZIDE 12.5 MG CAPSULE (FP) PO SCH ×2 (09:44→19:27)
[2018-11-05] MEDS: TOPIRAMATE 25 MG TABLET (FP) PO SCH ×2 (09:44→21:59)
[2018-11-05] MEDS: MINERAL OIL/PETROLAT/WATER TOPICAL CREAM 113 GM JAR TP PRN (09:45)
[2018-11-05] MEDS: NICOTINE 21 MG/24 HOURS TOPICAL PATCH TD SCH (09:45)
[2018-11-05] MEDS: FLUTICASONE PROP 0.05% 16 GM NASAL SPRAY NS SCH ×2 (09:45→21:58)
--- NOTE | 2018-11-05 11:35 | PN ---
[facility] Progress Note (SOAP) Subjective: patient to be discharged tomorrow. Objective: A+Ox3, no neurological deficits, Heart rate regular, lungs clear, abd soft, non- tender, non-distended. +BS. 11/05/18 11:31 CBC, BMP 11/03/18 07:00 Vital Signs (72 hours) 11/02/18 11/03/18 11/03/18 21:44 00:30 03:30 Temperature Pulse Rate 61 Respiratory 18 18 Rate Blood Pressure 99/66 11/03/18 11/03/18 11/03/18 06:45 09:16 10:50 Temperature 97.8 F Pulse Rate 77 67 63 Respiratory 16 Rate Blood Pressure 92/64 93/66 108/75 11/03/18 11/04/18 11/04/18 20:25 00:30 03:30 Temperature Pulse Rate 58 L Respiratory 18 18 Rate Blood Pressure 93/62 11/04/18 11/04/18 11/04/18 07:07 09:13 18:43 Temperature 97.6 F Pulse Rate 71 76 76 Respiratory 17 18 Rate Blood Pressure 100/69 102/69 90/60 11/05/18 11/05/18 11/05/18 00:30 03:30 07:03 Temperature 97.6 F Pulse Rate 79 Respiratory 18 18 18 Rate Blood Pressure 97/67 11/05/18 09:08 Temperature Pulse Rate 73 Respiratory Rate Blood Pressure 94/64 Laboratory Last Values Sodium 137 mmol/L (136-145) 11/03/18 07:00 Potassium 5.1 mmol/L (3.5-5.1) 11/03/18 07:00 Chloride 105 mmol/L (98-107) 11/03/18 07:00 Carbon Dioxide 27 mmol/L (21-32) 11/03/18 07:00 Anion Gap 5 MMOL/L (8-16) L 11/03/18 07:00 BUN 21 mg/dL (7-18) H 11/03/18 07:00 Creatinine 1.3 mg/dL (0.55-1.3) 11/03/18 07:00 Est GFR (CKD-EPI)AfAm 57.38 11/03/18 07:00 Est GFR (CKD-EPI)NonAf 49.50 11/03/18 07:00 POC Glucometer 171 UNITS (80-120) 10/27/18 06:41 Random Glucose 125 mg/dL (74-106) H 11/03/18 07:00 Hemoglobin A1c % 6.1 % (4.2-6.3) 10/28/18 08:00 Calcium 8.9 mg/dL (8.5-10.1) 11/03/18 07:00 Total Bilirubin 0.4 mg/dL (0.2-1) 11/03/18 07:00 AST 18 U/L (15-37) 11/03/18 07:00 ALT 28 U/L (13-61) 11/03/18 07:00 Alkaline Phosphatase 75 U/L (45-117) 11/03/18 07:00 Total Protein 6.8 g/dl (6.4-8.2) 11/03/18 07:00 Albumin 3.6 g/dl (3.4-5.0) 11/03/18 07:00 Levetiracetam 13.7 MCG/ML (10.0-40.0) 10/31/18 08:50 Assessment: Medically stable for discharge. Discharge Dx; ETOH dependence, chronic Seizure history Neuropathy 11/05/18 11:33 Plan: patient will have aftercare arranged by [facility]; she will be going directly to to arrange for support. She has an appointment with her medical provider in the next two weeks, Dr. Carlson at [place], [place]. Prescriptions were transmitted to her pharmacy.
[2018-11-05] MEDS ORDERED: PT OWN MED DRAWER 7, Y5N ONE ×2 (20:00→22:51)
[2018-11-05] MEDS: THIAMINE HCL 100 MG TABLET (FP) PO SCH (21:58)
[2018-11-05] MEDS: AMITRIPTYLINE HCL 10 MG TABLET (FP) PO SCH (21:58)
[2018-11-06] MEDS ORDERED: PT OWN MED DRAWER 7, Y5N ONE ×2 (00:01→01:26)
[2018-11-06 06:07] VITALS: BP 102/69; PULSE 94; TEMP 97.7
[2018-11-06] MEDS: GABAPENTIN 300 MG CAPSULE (FP) PO SCH (06:07)
[2018-11-06] MEDS: NICOTINE POLACRILEX 4 MG GUM BUC PRN (06:08)
== END 2018-11-06 06:10 | disposition home or self-care (01) | DRG 772 ==
LOC: YASAS 12:00 → Y3E 12:01
PROVIDERS: ADMIT Neuromusculoskeletal Medicine & OMM; ATTEND Neuromusculoskeletal Medicine & OMM
PROC: HZ42ZZZ Group Counseling for Substance Abuse Treatment, Cognitive-Behavioral (ICD-10-PCS; principal; 2018-10-23)
DX: F10.20 Alcohol dependence, uncomplicated (principal); G62.9 Polyneuropathy, unspecified; R60.0 Localized edema; Z86.19 Personal history of other infectious and parasitic diseases
CPT/HCPCS: 36415; 80053; 80177; 82962; 83036